=== PATIENT | female | born 1975 | race Caucasian/White ===

== ENCOUNTER 2017-06-28 12:47 | Emergency (ER) | payer OTHER ==
[~2017-06-28] VITALS: Ht 167.6 cm; Wt 63.6 kg
[2017-06-28 13:09] VITALS: BP 176/81; PULSE 114; RESP 18; O2SAT 100
--- NOTE | 2017-06-28 13:52 | ED.REPORT ---
HPI-General Illness Date of Service Jun 28, 2017 ED Provider: Sam Beltre DO Pt is a 42 year old female with a hx of chronic back pain, depression and anxiety presenting to the ED complaining of severe back pain. Associated symptoms include intermittent urinary incontinence, numbness in her arms and legs down to her feet, pain and shaking in her legs, and neck stiffness. Denies stool incontinence, dysuria, urinary frequency, urinary decrease, or hematuria. She is feeling very frustrated because she has seen several specialists for her back but no cause for her pain has been identified. She states that she is intermittently suicidal due to the pain. Pt states that she "can't live like this." She has had chronic back pain for the last 5 years. 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 Pt is ambulatory. Denies any previous hx of suicide attempt or plan. Nursing Notes Stated Complaint: MENTAL HEALTH Chief Complaint: Back Pain or Injury Nursing Notes Reviewed: Yes Allergies: Coded Allergies: No Known Allergies (Unverified , 06/28/17) General Time Seen by MD: 13:32 Chief Complaint Back pain Hx Obtained From: Patient Arrived By: Walk-in Sudden in Onset?: No Onset Occurred: Onset unknown Symptom Duration: Since onset Location: : Back Quality: Painful Severity: Current: Severe Severity: Maximum: Severe Recent Healthcare: No recent doctor visit, No recent hospitalization Similar Sx Previous: Yes Past Medical History Past Medical History Chronic back pain Depression Anxiety Past Surgical History denies Smoking History Current Every Day Smoker Social History Alcohol Use: Denies alcohol use Drug Use: Denies drug use Ambulatory Status Independent Review of Systems Denies stool incontinence Full Review of Systems Female: Reports: Incontinence, Denies: Dysuria, Hematuria, Urinary frequency, Urination decreased, Urination increased Musculoskeletal: Reports: Back pain, Neck pain Neurologic: Reports: Numbness, Shaking Complete sys rev & neg: except as marked. Physical Exam Vital Signs Vital Signs Date Time Temp Pulse Resp B/P Pulse Ox O2 Delivery O2 Flow Rate FiO2 06/28/17 13:09 36.8 114 18 176/81 100 Room Air Initial VS: Reviewed General/Constitutional: Well-developed, Well-nourished Head / Eyes: Atraumatic, Normocephalic, PERRL ENT: Mucous membranes moist, Conjunctiva normal, No scleral icterus Neck: Supple, Non-tender, Full range of motion Respiratory: Breath sounds normal, Clear to auscultation, No respiratory distress Cardiovascular: Regular rate & rhythm, Heart sounds normal, Intact distal pulses Abdomen / GI: Soft, Non-tender, No guarding, No rebound, No distention Extremities: Vascular intact, Neuro intact, No swelling, No tenderness Skin: Warm, Dry, No cyanosis Back: Atraumatic, No CVA tenderness Upper lumbar tenderness to palpation Neurologic: Oriented X3, Speech NL, No motor deficits Decreased sensation of the left lower extremity. Otherwise sensory function normal at all spinal levels. Motor function normal from L1-S1. Psychiatric: Cognitive function NL Abnormal Thinking / Perception: Positive: Suicidal, no plan Expresses suicidal ideation without plan due to pain Re-Eval/Medical Decision Med Decision/Clinical Course Other than a minor paresthesia of the left anterior brandt and lateral foot patient is neurologically intact. Pain sounds chronic in nature without bowel or bladder dysfunction. Patient does appear to be in severe distress, she does appear to be anxious and endorses depression and suicidal thoughts. Will plan to have mental health evaluation. Care transferred to Dr. Solo Time of Eval: 15:22 Patient Status: Condition improved Re-Evaluation/Progress Note: Pt care transferred to Dr. Solo. Counseled Regarding: Diagnosis, Lab results, Need for follow-up, When/why to return to ED Discharge & Departure Primary Impression: Depression Depression Type: unspecified Qualified Code: F32.9 - Major depressive disorder, single episode, unspecified Additional Impression: Chronic back pain Back pain location: low back pain Back pain laterality: unspecified Sciatica presence: unspecified whether sciatica present Qualified Code: M54.5 - Low back pain Disposition: Home Discharge Condition All VS Reviewed: Yes Condition: Improved Care Transferred to: Care transferred to Dr. Solo Care Transferred at: 15:23 Scribe Attestation Portions of this note were transcribed by Carter Zapata. I, Dr. Beltre personally performed the history, physical exam and medical decision-making; I reviewed and confirmed the accuracy of the information in the transcribed note. Signed by: Kimberley Arreaga, 06/28/2017. Sam Beltre DO Jun 28, 2017 13:52 CARTER ZAPATA Jun 28, 2017 13:59
[2017-06-28 15:54] VITALS: BP 118/80; PULSE 97; RESP 16; O2SAT 100
[2017-06-28] MEDS ORDERED: oxyCODONE-Acetamin 10-325 mg Tablet PO ONE (16:20)
[2017-06-28] MEDS ORDERED: PRE20 PO (16:33)
[2017-06-28] MEDS ORDERED: METH750T3 PO (16:33)
[2017-06-28] MEDS ORDERED: OXYC-466 PO (16:33)
[2017-06-28 16:41] VITALS: BP 125/75; PULSE 89; O2SAT 100
== END 2017-06-28 17:08 | disposition home or self-care (01) ==
LOC: SED 12:47
DX: F32.9 Major depressive disorder, single episode, unspecified (principal); M54.5 Low back pain; G89.29 Other chronic pain; F41.9 Anxiety disorder, unspecified; F17.200 Nicotine dependence, unspecified, uncomplicated
CPT/HCPCS: 82075; 96372; 99284; J1885; J2060

== ENCOUNTER 2017-07-10 11:28 | Emergency (ER) | payer OTHER ==
[~2017-07-10 11:28] MED LIST: METH750T3 PO; OXYC-466 PO; PRE20 PO
[2017-07-10 11:40] VITALS: BP 156/99; PULSE 110; RESP 14; O2SAT 99
--- NOTE | 2017-07-10 12:48 | ED.REPORT ---
HPI-Chest Pain 40 and Over Date of Service Jul 10, 2017 ED Provider: Liam Isabel MD This is a 42-year-old female with history of chronic back pain, depression, anxiety who presents to the emergency department for right sided chest pain. She describes the pain as a constant, sharp, 9/10 stabbing pain around her right breast that radiates to the right elbow, which started 2 days ago while folding laundry. Pain is worse with movement. It does not seem to be relieved by ibuprofen 800 mg every 2-4 hours, methocarbamol, Flexeril, Percocet 10 mg. She has not had pain like this prior. She denies any breast lumps, family history of heart disease or personal history of heart disease. She has smoked for the last 24 years. She denies any recent long travel. She notes recent dizziness, shortness of breath and chronic headaches. She denies nausea or vomiting, abdominal pain, diarrhea, constipation. She does mention having left leg swelling 1 week prior. Nursing Notes Stated Complaint: CHEST PAIN, RIGHT BREAST TO ARMPIT Chief Complaint: General Complaint Nursing Notes Reviewed: Yes ([employer], [employer] not reconciled) Allergies: Coded Allergies: No Known Allergies (Unverified , 07/10/17) Scheduled Prednisone (PredniSONE) 20 Mg Tablet 40 MG PO DAILY Prednisone (PredniSONE) 20 Mg Tablet 40 MG PO DAILY Scheduled PRN Methocarbamol (Methocarbamol) 750 Mg Tablet 1,500 MG PO QID PRN PRN For Spasm Methocarbamol (Methocarbamol) 750 Mg Tablet 750 MG PO QID PRN PRN For Spasm Naproxen (Naprosyn) 500 Mg Tablet 500 MG PO BID PRN PRN For Pain oxyCODONE (oxyCODONE) 5 Mg Tablet 5-10 MG PO Q6H PRN PRN For Pain oxyCODONE-Acetaminophen 10-325 mg (oxyCODONE-Acetaminophen 10-325 mg) 1 Each Tablet 1 TABLET PO Q6H PRN PRN For Pain General Time Seen by MD: 12:31 Chief Complaint Chest pain Sudden in Onset?: Yes Risk Factors PERC Rule Heart rate 100 or over, Unilateral leg swelling Past Medical History Past Medical History Notes: Last ED visit 06/2017 for back pack Past Medical History Chronic back pain Depression Anxiety Past Surgical History denies Smoking History Current Every Day Smoker Social History Alcohol Use: Denies alcohol use Drug Use: Denies drug use Ambulatory Status Independent Review of Systems Basic Review of Systems Eyes: Vision NL ENT: Hearing NL : No dysuria, No frequency Respiratory: Reports: Shortness of breath Cardiovascular: Reports: Chest pain GI: Denies: Abdominal pain, Constipation, Diarrhea, Nausea, Vomiting Musculoskeletal: Reports: Back pain (chronic) Neurologic: Reports: Dizziness, Headache Psychiatric: Reports: Anxiety, Depression Complete sys rev & neg: except as marked. Physical Exam Initial Vital Signs Vital Signs (First) Date Time Temp Pulse Resp B/P Pulse Ox O2 Delivery O2 Flow Rate FiO2 07/10/17 11:40 37.0 110 14 156/99 99 07/10/17 13:46 Room Air Initial VS: Reviewed, Vital signs abnormal (HR 110) General/Constitutional: Awake, Alert, Cooperative, Not toxic appearing Distress / Hydration: Positive: Distress moderate (tearful) Behavior: Positive: Anxious Respiratory / Chest: Breath sounds NL, Breath sounds = bilat Cardiovascular: Regular rhythm, Heart sounds NL Heart Rate / Rhythm: Positive: Tachycardia Abdomen: Atraumatic, Soft, Non-tender, No guarding, No rebound, BS normoactive Lower Extremity / Pelvis / MS: Non-tender, No edema Interpretation & Diagnostics Lab Results Interpretation Result Diagram: 07/10/17 1300 07/10/17 1300 Test 07/10/17 13:00 07/10/17 13:22 White Blood Count 8.4th/mm3 (3.8-10.1) Red Blood Count 4.17mil/mm3 (3.90-5.20) Hemoglobin 10.5g/dL (12.0-15.6) Hematocrit 33.4% (35.0-46.0) Mean Corpuscular Volume 80fL (81-100) Mean Corpuscular Hemoglobin 25.2pg (27.0-35.0) Mean Corpuscular Hemoglobin Concent 31.4% (32.0-37.0) Red Cell Distribution Width 15.0% (12.3-15.4) Platelet Count 368bil/L (150-400) Neutrophils (%) (Auto) 63% (40-74) Lymphocytes (%) (Auto) 27% (14-46) Monocytes (%) (Auto) 9% (4-12) Eosinophils (%) (Auto) 1% (0-5) Basophils (%) (Auto) 0% (0-3) D-Dimer < 0.5mg/L FEU (<0.50) Sodium Level 140mEq/L (134-144) Potassium Level 4.1mEq/L (3.5-5.2) Chloride Level 104mEq/L (97-108) Carbon Dioxide Level 21mmol/L (18-29) Blood Urea Nitrogen 12mg/dL (6-24) Creatinine 0.68mg/dL (0.57-1.00) Estimat Glomerular Filtration Rate 137mL/min (>59) Glucose Level 88mg/dL (60-99) Calcium Level 9.3mg/dL (8.5-10.1) Magnesium Level 2.2mg/dL (1.6-2.6) Total Bilirubin 0.2mg/dL (0.0-1.2) Aspartate Amino Transf (AST/SGOT) 15U/L (0-50) Alanine Aminotransferase (ALT/SGPT) 13U/L (0-32) Alkaline Phosphatase 43U/L (25-150) Troponin T < 0.010ug/L (0.0-0.011) Total Protein 6.9g/dL (6.4-8.4) Albumin 4.3g/dL (3.4-5.0) Human Chorionic Gonadotropin, Qual Negative (Negative) Hold Urine Received (Received) Lab Results Interpretation: CBC normal CMP normal D dimer negative Troponin negative after >24 hours of continuous symptoms X-Ray Chest Interpretation Chest Xray Interpretation: IMPRESSION: No radiographic evidence of acute cardiopulmonary pathology. Re-Eval/Medical Decision Med Decision/Clinical Course This is a 42-year-old female with history of depression, anxiety and chronic back pain who presents to the ED for right sided chest pain. Patient is PERC positive given history of unilateral leg swelling and tachycardia, so D-dimer was ordered. Her story is unlikely for ACS. However, troponins, EKG, chest x- ray was taken. Patient had negative troponins, negative d-dimer and unremarkable CMP. Chest x-ray showed no acute abnormalities. Patient's pain is reproducible with movement and physical exam showed tenderness of right sided ribs and musculature. This is likely due to chest wall pain and emergent cause of chest pain has been ruled out. Patient's pain improved with morphine and benzodiazepine. Source of Hx: Old records Differential Diagnosis: Positive: Chest pain, acute, Negative: Acute coronary syndrome, Acute myocardial infarct, Esophageal rupture, Gun shot wound chest, Pneumonia, Pneumothorax, Pulmonary edema, Pulmonary embolism, Rib fracture Discharge & Departure Primary Impression: Chest wall pain Disposition: Home Discharge Condition All VS Reviewed: Yes Condition: Stable Patient Instructions: Chest Wall Pain (ED) Additional Instructions: In the emergency department, you werre evaluated for your chest pain. A dangerous cause of the pain was not identified on your tests (blood, EKG, Xray. The pain is likely related to either a muscle strain or costochondritis. You can take naprosyn (alleve) 500mg twice a day (instead of ibuprofen, take with food) You can take the muscle relaxant methocarbamol 750mg up to 4 times a day as needed. I have written for a 5 day course of prednisone 40mg daily as you indicate that hs helped proviously. I have written a refill of the oxycodone to help you get to your doctor's appointment next week. USE SPARINGLY. This is a narcotic and causes drowsiness. NO driving for at least 4 hours after taking. I do recommend calling to see if they can indeed accept you as a primary care provider. Try to use ice and heat packs. Try to rest your arm. Referrals: Chanda Kulkarni DO (PCP) Attending Statement This is a 42-year-old female initially seen by the resident, but I personally interviewed and examined the patient. She presents with extremely atypical, low risk right-sided chest discomfort 2 days continuously. She is also chronic severe back pain, and is out of her methocarbamol-is trying to establish for a PCP down in [place] although she lives on [facility] for continued management. She has no high risk features. She is extremely anxious, but otherwise has a normal physical exam. Her workup in the department was negative including troponin-after to discontinue his symptoms, the normal EKG, and a low risk story additional biomarkers and testing is not indicated. HEART score is 1. She has no clinical findings of DVT/PE, and a d-dimer is negative. Chest x-ray is negative for pneumothorax, pneumonia other overt pathology. She is quite anxious, is also notes that she does not have a PCP that no one seems understand her chronic pain. Turns out she is out of her muscle relaxant , and is out of her oxycodone, and is in the process of following up but does not have an appointment until next . Overall, I find the patient very low risk for acute coronary syndrome or other dangerous pathology. Her workup is reassuring, her exam is reassuring. After long discussion the patient gone ahead and written a refill for methocarbamol, as well as a few oxycodone to get her to the appointment-although explained to provide further refills, and I recommend she continue the naproxen she thinks works better for her than ibuprofen. She also request a few days of prednisone and states that really helps with her back, several for short five-day course at her request. I recommended addition of Tylenol and written for oxycodone without Tylenol to avoid overdose. The patient is discharged in stable condition. Liam Isabel MD Jul 10, 2017 12:48 Mc Cintron DO Jul 10, 2017 13:39
[2017-07-10 13:19] LABS: Mean Corpuscular Hemoglobin 25.2 pg (27.0-35.0); Mean Corpuscular Volume 80 fL (81-100); Platelet Count 368 bil/L (150-400)
[2017-07-10 13:20] LABS: BASOPHILS % (AUTO) 0 % (0-3); EOSINOPHILS % (AUTO) 1 % (0-5); MONOCYTES % (AUTO) 9 % (4-12); NEUTROPHILS % (AUTO) 63 % (40-74)
[2017-07-10 13:46] VITALS: BP 130/70; PULSE 89; RESP 14; O2SAT 100
--- NOTE | 2017-07-10 13:51 | DRSVH ---
PROCEDURE: X-RAY CHEST ONE VIEW, PORTABLE ([id number]) INDICATIONS: CP TECHNIQUE: One view of the chest was acquired. COMPARISON: None. FINDINGS: Surgical changes and devices: None. Lungs and pleura: No pleural effusions or pneumothorax. Lungs are clear. Mediastinum: Mediastinal contours appear normal. Heart size is normal. Bones and chest wall: No suspicious bony lesions. Overlying soft tissues appear unremarkable. IMPRESSION: No radiographic evidence of acute cardiopulmonary pathology. Dictated by: George Talbot M.D. on 07/10/2017 at 13:49 Approved by: George Talbot M.D. on 07/10/2017 at 13:49
[2017-07-10 13:59] LABS: TROPONIN T < 0.010 ug/L (0.0-0.011)
[2017-07-10 14:09] LABS: Magnesium 2.2 mg/dL (1.6-2.6)
[2017-07-10] MEDS ORDERED: METH750T3 PO (15:10)
[2017-07-10] MEDS ORDERED: NAPR500T PO (15:10)
[2017-07-10] MEDS ORDERED: OXYC5TAB72 PO (15:10)
[2017-07-10] MEDS ORDERED: PRE20 PO (15:10)
[2017-07-10 15:34] VITALS: BP 140/69; PULSE 92; RESP 18; O2SAT 100
== END 2017-07-10 15:35 | disposition home or self-care (01) ==
LOC: SED 11:28
DX: R07.89 Other chest pain (principal); F17.200 Nicotine dependence, unspecified, uncomplicated
CPT/HCPCS: 36415; 71010; 80053; 83735; 84484; 84703; 85025; 85378; 93005; 96374; 96375; 99285; J2060; J2270

== ENCOUNTER 2017-07-19 16:41 | Observation (INO) | payer OTHER ==
[~2017-07-19] VITALS: Ht 167.6 cm; Wt 75.3 kg
[~2017-07-19 16:41] MED LIST changes: +NAPR500T PO; +OXYC-530 PO
[2017-07-19 16:49] VITALS: BP 138/87; PULSE 104; RESP 16; O2SAT 100
[2017-07-19] MEDS ORDERED: 0.9% Sodium Chloride 1,000 ML IV ONE (16:59)
[2017-07-19] MEDS ORDERED: Ondansetron 2 mg/mL 2 mL Inj IVPUSH ONE (17:00)
[2017-07-19 17:14] LABS: BASOPHILS % (AUTO) 0.8 % (0-3); EOSINOPHILS % (AUTO) 2.2 % (0-5); MONOCYTES % (AUTO) 7.3 % (4-12); Mean Corpuscular Hemoglobin 25.3 pg (27.0-35.0); Mean Corpuscular Volume 78.9 fL (81-100); NEUTROPHILS % (AUTO) 56.3 % (40-74); Platelet Count 467 bil/L (150-400)
--- NOTE | 2017-07-19 17:21 | ED.REPORT ---
HPI-General Illness Date of Service Jul 19, 2017 ED Provider: Rodrigo Azevedo MD Pt is a 42 y/o female w/ a hx of GERD, chronic back pain, presenting to the ED c /o waxing and waning severe epigastric abdominal pain with radiation to the right upper chest onset 11 days ago. She c/o associated nausea, vomiting x2 episodes. Pt denies hematemesis, diarrhea, bloody stool. Her pain is not exacerbated or relieved by anything. There is no history of peptic ulcer disease. She was seen for similar complaints on 07/12/17 at [facility] and was discharged with plan for PCP follow-up. She saw her PCP Dr. Turk today who recommended she come to the ED to evaluate for possible choledocholithiasis. Abdominal surgeries are and tubal ligation. She has been taking [id number] mg Ibuprofen daily for chronic back pain for 3 years. She also takes Omeprazole. There is no history of similar symptoms. Obtained previous RUQ US performed at [facility] on 07/12/17 - 1. No cholelithiasis or evidence of acute cholecystitis. 2. Mildly enlarged common bile duct is of uncertain etiology. The need an MRCP to evaluate for possible choledocholithiasis may be determined clinically. Nursing Notes Stated Complaint: POSSIBLE GALBADDER STONE/SENT BY DOCTOR Chief Complaint: Female Abdominal Pain Nursing Notes Reviewed: Yes Allergies: Coded Allergies: No Known Allergies (Unverified , 07/10/17) Scheduled Amitriptyline (Amitriptyline) 25 Mg Tab 25-50 MG PO QAM Duloxetine (Duloxetine) 30 Mg Capsule.dr 90 MG PO HS Fluticasone Propionate (Fluticasone Propionate) 50 Mcg/Actuation [place].susp 1 SPRAY NS QAM Ibuprofen (Ibuprofen) 800 Mg Tablet 800 MG PO TID Omeprazole (Omeprazole) 40 Mg Capsule.dr 40 MG PO BIDAC Zinc Oxide (Vitamelts Fast Dissolve) 15 Mg Tab.rapdis 15 MG PO QAM Scheduled PRN Hydrocodone-Acetaminophen 5-325 mg (Hydrocodone-Acetaminophen 5-325 mg) 1 Each Tablet 2 TABLET PO Q6H PRN PRN For Pain Methocarbamol (Methocarbamol) 750 Mg Tablet 750 MG PO QID PRN PRN For Spasm Pseudoephedrine HCl (Sinus 12 Hour) 120 Mg Tablet.er 120 MG PO BID PRN PRN For Congestion Sumatriptan Succinate (Sumatriptan Succinate) 50 Mg Tablet 50 MG PO DIRECTED PRN PRN For Headache MAY REPEAT IN 2 HRS IF NEEDED General Time Seen by MD: 16:57 Chief Complaint Abdominal pain Hx Obtained From: Patient Arrived By: Walk-in Sudden in Onset?: No Onset Occurred: More than a week ago... Symptom Duration: Intermittent Location: : Abdomen Quality: Painful Severity: Current: Moderate Severity: Maximum: Severe Similar Sx Previous: No Past Medical History Past Medical History Notes: Last ED visit 06/2017 for back pack Past Medical History Chronic back pain Depression Anxiety GERD Past Surgical History denies Smoking History Current Every Day Smoker Social History Alcohol Use: Denies alcohol use Drug Use: Denies drug use Ambulatory Status Independent Review of Systems Full Review of Systems Constitutional: Denies: Fever GI: Reports: Abdominal pain, Nausea, Vomiting, Denies: Bloody/tarry stool, Diarrhea, Hematemesis Complete sys rev & neg: except as marked. Physical Exam Vital Signs Vital Signs Date Time Temp Pulse Resp B/P Pulse Ox O2 Delivery O2 Flow Rate FiO2 07/19/17 16:49 37.2 104 16 138/87 100 Room Air Initial VS: Reviewed, Vital signs abnormal Head / Eyes: Atraumatic, Normocephalic ENT: Mucous membranes moist, Conjunctiva normal Neck: Full range of motion Respiratory: Breath sounds normal, Clear to auscultation, No respiratory distress Cardiovascular: Regular rate & rhythm, Heart sounds normal, Intact distal pulses Extremities: Vascular intact, Neuro intact, No swelling Skin: Warm, Dry, No cyanosis Neurologic: Alert, Oriented, Nonfocal Psychiatric: Behavior normal, Normal thought content General/Constitutional: Awake, Alert, No acute distress, Cooperative, Not toxic appearing Behavior: Positive: Tearful Appearance / Presentation: Positive: In pain, Uncomfortable Abdomen: Atraumatic, Soft, No guarding, No rebound, BS normoactive, No distention, No palpable mass Tenderness/Guarding/Rebound: Positive: Tender epigastric, Negative: Carney's sign positive Interpretation & Diagnostics Interpretation & Diagnostics: US abdomen: FINDINGS: No cholelithiasis. Normal gallbladder wall thickness. No pericholecystic fluid. Negative sonographic Carney's sign. No intra-or extrahepatic biliary ductal dilatation. IMPRESSION: No sonographic evidence of acute cholecystitis. Dictated by: George Talbot M.D. on 07/19/2017 at 18:13 Approved by: George Talbot M.D. on 07/19/2017 at 18:14 Lab Results Interpretation Result Diagram: 07/19/17 1711 07/19/17 1711 Test 07/19/17 17:11 07/19/17 17:13 White Blood Count 9.0th/mm3 (3.8-10.1) Red Blood Count 4.27mil/mm3 (3.90-5.20) Hemoglobin 10.8g/dL (12.0-15.6) Hematocrit 33.7% (35.0-46.0) Mean Corpuscular Volume 78.9fL (81-100) Mean Corpuscular Hemoglobin 25.3pg (27.0-35.0) Mean Corpuscular Hemoglobin Concent 32.0% (32.0-37.0) Red Cell Distribution Width 15.7% (12.3-15.4) Platelet Count 467bil/L (150-400) Neutrophils (%) (Auto) 56.3% (40-74) Lymphocytes (%) (Auto) 33.3% (14-46) Monocytes (%) (Auto) 7.3% (4-12) Eosinophils (%) (Auto) 2.2% (0-5) Basophils (%) (Auto) 0.8% (0-3) Sodium Level 138mEq/L (134-144) Potassium Level 3.6mEq/L (3.5-5.2) Chloride Level 100mEq/L (97-108) Carbon Dioxide Level 23mmol/L (18-29) Blood Urea Nitrogen 9mg/dL (6-24) Creatinine 0.63mg/dL (0.57-1.00) Estimat Glomerular Filtration Rate 150mL/min (>59) Glucose Level 90mg/dL (60-99) Calcium Level 9.0mg/dL (8.5-10.1) Magnesium Level 1.9mg/dL (1.6-2.6) Total Bilirubin 0.2mg/dL (0.0-1.2) Aspartate Amino Transf (AST/SGOT) 13U/L (0-50) Alanine Aminotransferase (ALT/SGPT) 10U/L (0-32) Alkaline Phosphatase 46U/L (25-150) Total Protein 6.8g/dL (6.4-8.4) Albumin 4.2g/dL (3.4-5.0) Lipase 17U/L (13-60) Human Chorionic Gonadotropin, Qual Negative (Negative) Hold Soliz Top Tube Received (Received) Urine Color Straw (YELLOW) Urine Appearance Clear (CLEAR,HAZY) Urine pH 5.5 (5.0-8.0) Urine Specific [place] 1.015 (1.003-1.035) Urine Protein Negativemg/dL (NEG,TRACE) Urine Glucose (UA) Negativemg/dL (NEGATIVE) Urine Ketones Negativemg/dL (NEGATIVE) Urine Occult Blood Negative (NEGATIVE) Urine Nitrite Negative (NEGATIVE) Urine Bilirubin Negative (NEGATIVE) Urine Urobilinogen Normalmg/dL (NORMAL) Urine Leukocyte Esterase Negative (NEGATIVE) Urine RBC 0-2/hpf (0-2) Urine WBC 0-5/hpf (0-5) Urine Epithelial Cells Moderate/hpf (NONE-MOD) Urine Crystals None seen (NONE SEEN) Urine Bacteria Few/hpf (NONE-FEW) Urine Hyaline Casts None/lpf (NONE) Urine Granular Casts None seen (NONE SEEN) Urine Waxy Casts None seen (NONE SEEN) Urine Red Blood Cell Casts None seen (NONE SEEN) Urine White Blood Cell Casts None seen (NONE SEEN) Urine Mucus None seen (None Seen) Urine Trichomonas None seen (NONE SEEN) Urine Yeast None (NONE SEEN) Urinalysis Comment None Urine Culture Reflexed Not indicated X-Ray Abdominal Interpretation IMPRESSION: Nonobstructive bowel gas pattern. Moderate stool in the ascending colon. Dictated by: George Talbot M.D. on 07/19/2017 at 19:05 Approved by: George Talbot M.D. on 07/19/2017 at 19:06 Study: 4 view Interpretation / Wet Read by: Interpret - Radiologist Re-Eval/Medical Decision Med Decision/Clinical Course In summary, the patient is a generally healthy 42-year-old female who presents with severe epigastric abdominal pain. She admits to taking 800 mg of ibuprofen 4 times daily for the last 2 years. Here in the emergency department she has tenderness about the epigastrium those otherwise afebrile and hemodynamically stable. She appears quite uncomfortable. Meds given: IVF, Zofran, Dilaudid, pantoprazole, GI cocktail, Carafate. Thereafter patient reported dramatic symptomatic improvement. Obtained previous RUQ US performed at [facility] on 07/12/17 - 1. No cholelithiasis or evidence of acute cholecystitis. 2. Mildly enlarged common bile duct is of uncertain etiology. The need an MRCP to evaluate for possible choledocholithiasis may be determined clinically. Labs notable as below: CBC: HCT of 33.7, no leukocytosis. CMP: Unremarkable Lipase WNL LFTs WNL UA: no signs of UTI : negative US abdomen: No sonographic evidence of acute cholecystitis. XR abdomen: Nonobstructive bowel gas pattern. Moderate stool in the ascending colon. Initial history of dilated common bile duct was somewhat concerning for biliary etiology to her overall history, presentation and examination is not suggestive thereof. Repeat ultrasound today demonstrates no particularly concerning biliary findings. Examinations which were consistent with peptic ulcer disease/ gastritis, likely in the setting of her very excessive ibuprofen use. After seeing any blood medications the patient reported symptomatic improvement was not comfortable with outpatient management. She stated that she was very scared of going home due to the pain and she has been experiencing. Patient was discussed with GI doctor Montanez agreed to perform upper endoscopy in the morning. In the meantime patient will be given 40 mg of pantoprazole twice a day and Carafate 4 times a day. Patient is to be made nothing by mouth with plan for endoscopy in the morning. At this time no evidence of perforated ulcer /peritonitis or other acute surgical process. Patient was discussed with admitting hospitalist and transferred for further management in stable condition. Time of Eval: 18:22 Re-Evaluation/Progress Note: Pt rechecked. She is uncomfortable. She would like to be admitted mostly for pain control but also for further evaluation. Consultation #1: Referral / Consult Name: Harish Montanez MD Call Returned at: 18:33 Pelletizer Operator: Agrees with eval, Agrees with plan Note: Discussed case with GI. Requests make patient NPO. Will scope tomorrow morning. Consultation #2: Referral / Consult Name: Charo Mendiola DO Consulted With: Hospitalist Call Returned at: 19:21 Pelletizer Operator: Will see patient, Agrees with eval, Agrees with plan, Accepts admit Counseled Regarding: Diagnosis, Lab results, Need for admission Discharge & Departure Primary Impression: Epigastric pain Additional Impressions: NSAID long-term use Peptic ulcer disease Disposition: ADMITTED TO HOSPITAL Discharge Condition All VS Reviewed: Yes Condition: Stable Referrals: Chanda Kulkarni DO (PCP) Scribe Attestation Portions of this note were transcribed by Axel Degroot. I, Dr. Azevedo personally performed the history, physical exam and medical decision-making; I reviewed and confirmed the accuracy of the information in the transcribed note. copies to: Chanda Kulkarni Beck O MD Jul 19, 2017 17:21 AXEL DEGROOT Jul 19, 2017 17:44
[2017-07-19] MEDS: HYDROmorphone 0.5 mg/0.5 mL iSecure Syringe IVPUSH PRN ×2 (17:29→17:50)
[2017-07-19 17:36] LABS: APPEARANCE,URINE CLEAR (CLEAR,HAZY); COLOR,URINE STRAW (YELLOW); OCCULT BLOOD,URINE NEGATIVE (NEGATIVE); PH,URINE 5.5 (5.0-8.0); UROBILINOGEN,URINE NORMAL (NORMAL)
[2017-07-19 17:47] LABS: Lipase 17 U/L (13-60); Magnesium 1.9 mg/dL (1.6-2.6)
--- NOTE | 2017-07-19 18:15 | DRSVH ---
PROCEDURE: US ABDOMEN, LIMITED ([id number]) INDICATIONS: ruq pain TECHNIQUE: Real-time focused scanning was performed of the abdomen, with image documentation. COMPARISON: Located Within [facility], US, ABDOMEN COMPLETE, 07/12/2017, 10:52. FINDINGS: No cholelithiasis. Normal gallbladder wall thickness. No pericholecystic fluid. Negative so nographic Carney's sign. No intra-or extrahepatic biliary ductal dilatation. IMPRESSION: No sonographic evidence of acute cholecystitis. Dictated by: George Talbot M.D. on 07/19/2017 at 18:13 Approved by: George Talbot M.D. on 07/19/2017 at 18:14
[2017-07-19] MEDS ORDERED: Ondansetron 2 mg/mL 2 mL Inj IVPUSH PRN (18:25)
[2017-07-19] MEDS ORDERED: LidocaineVisc 2%:Antacid 1:1 10 mL Syringe PO ONE (18:25)
[2017-07-19] MEDS ORDERED: HYDROmorphone 1 mg/mL Inj IVPUSH ONE (18:25)
[2017-07-19] MEDS ORDERED: Alum-Mag Hydrox-Simeth 30 mL Suspension PO PRN (18:25)
[2017-07-19] MEDS ORDERED: Pantoprazole 4 mg/mL 10 mL Inj IVPUSH ONE ×2 (18:25→20:30)
[2017-07-19 19:04] VITALS: BP 132/81; PULSE 84; RESP 16; O2SAT 99
[2017-07-19] MEDS ORDERED: LORazepam 1 mg Tablet PO ONE (19:05)
--- NOTE | 2017-07-19 19:08 | DRSVH ---
PROCEDURE: X-RAY ACUTE ABDOMINAL SERIES ([id number]) INDICATIONS: abd pain epigastric TECHNIQUE: One view chest and two views of the abdomen were acquired. COMPARISON: None. FINDINGS: Surgical changes and devices: None. Chest: Lungs are clear. Heart size is normal. No pleural effusions. No pneumoperitoneum. Abdomen: Bowel gas pattern is normal. Moderate stool in the ascending colon. No suspicious calcific ations. Visualized solid organ contours appear normal. Bones: No suspicious bony lesions. IMPRESSION: Nonobstructive bowel gas pattern. Moderate stool in the ascending colon. Dictated by: George Talbot M.D. on 07/19/2017 at 19:05 Approved by: George Talbot M.D. on 07/19/2017 at 19:06
[2017-07-19 19:28] VITALS: BP 132/81; PULSE 84; RESP 16; O2SAT 99
[2017-07-19 19:58] VITALS: BP 134/88; PULSE 85; RESP 18; O2SAT 100
[2017-07-19] MEDS ORDERED: HYDROmorphone 1 mg/mL Inj IVPUSH PRN (20:00)
[2017-07-19] MEDS ORDERED: Sucralfate 100 mg/mL 10 mL Suspension PO ONE (21:30)
[2017-07-19] MEDS: 0.9% Sodium Chloride 1,000 ML IV SCH (21:41)
--- NOTE | 2017-07-19 22:29 | PCM.HPMED ---
Subjective Date of Service Jul 19, 2017 Primary Provider: Admitting Physician: Charo Mendiola DO Primary Care Physician: Chanda Kulkarni DO Attending Physician: Charo Mendiola DO Admit Status: From the Emergency Department Chief Complaint: Epigastric pain History of Present Illness: Ms. Bruce is a 42-year-old female with past medical history of chronic back pain & GERD presents to the emergency department secondary to 11days of epigastric/abdominal pain with radiation to the right upper chest. She does not remember a specific inciting event to these current symptoms, though was seen at [facility] ED on 07/10/2017 and her chest pain was determined to be a muscle strain or costochondritis. She was given NSAID, muscle relaxant and prednisone as well as pain medications. She was then seen at [facility] for similar symptoms and reports no diagnostic solution was found to her current pain, right upper quadrant ultrasound performed at [facility] on 07/12/2017 showed no cholelithiasis or evidence of acute cholecystitis. 2. Mildly enlarged common bile duct is of uncertain etiology. The need an MRCP to evaluate for possible choledocholithiasis may be determined clinically. She presents again today to the ED for ongoing epigastric pain with newly accompanying nausea and vomiting. The vomiting began yesterday 6 times and is reported as watery, no blood. She has not been able to eat food without pain and "does not remember the last time she ate anything secondary to this pain". She reports no fevers at home, no other sick contacts, no abdominal pain or diarrhea. Her epigastric pain is not worsened by anything specific, is relieved with pain medications. She does state that she has been taking 800 mg of ibuprofen every 4 hours to help relieve her pain in addition to her pain medications. She was seen by her PCP Dr. Turk today who recommended further evaluation in the ED for choledocholithiasis. She has significant past surgical history of and tubal ligation, The ED patient was given pain medication, GI was consult is requested patient be placed nothing by mouth, Protonix and sulfate given admission for monitoring of hemodynamic state with scheduled upper endoscopy for suspected bleeding peptic ulcer tomorrow. CBC showed a hemoglobin 10.8, CMP unremarkable. Lipase , total bili and LFTs within normal limits. UA negative. Review of Systems: A comprehensive review of systems was conducted with the patient and found to be negative except as above in the history of present illness. Allergies Coded Allergies: No Known Allergies (Unverified , 07/10/17) Home Medications Methocarbamol (Methocarbamol) 750 Mg Tablet 1,500 MG PO QID PRN PRN For Spasm Methocarbamol (Methocarbamol) 750 Mg Tablet 750 MG PO QID PRN PRN For Spasm Naproxen (Naprosyn) 500 Mg Tablet 500 MG PO BID PRN PRN For Pain oxyCODONE (oxyCODONE) 5 Mg Tablet 5-10 MG PO Q6H PRN PRN For Pain oxyCODONE-Acetaminophen 10-325 mg (oxyCODONE-Acetaminophen 10-325 mg) 1 Each Tablet 1 TABLET PO Q6H PRN PRN For Pain PMH Chronic back pain Depression Anxiety GERD Surgical History Tubal ligation Family History Mother age 76 from myocardial infarction Father had "lung issues" stent placement 4. Alive today 80 years old Social History Hx Alcohol Use: No Hx Substance Use: No Hx Tobacco Use: Yes Smoking Status: Current Every Day Smoker Living Arrangement: with Family Exam Vital Signs Vital Sign - Last Date Time Temp Pulse Resp B/P Pulse Ox O2 Delivery O2 Flow Rate FiO2 07/19/17 19:58 36.8 85 18 134/88 100 Room Air Exam General: Awake and alert and going up in hospital bed in mild distress, well- developed, well-nourished, appropriately interactive HEENT: Normocephalic, atraumatic. External ears without defect. Pupils equal, round, and reactive to light and accommodation. Anicteric sclerae, moist conjunctivae, and no lid lag. Oropharynx free of erythema and cobble stoning with moist mucosa. Neck: Supple with full range of motion. No jugular venous distension. No bruits. Cardiovascular: Regular rate and rhythm with no murmurs, rubs, or gallops appreciated Pulmonary: Clear to auscultation bilaterally with no crackles, wheezes, or rhonchi. Normal respiratory effort with no use of accessory muscles. Abdomen: Bowel tones present. Soft, very tender to palpation epigastric area. Nondistended. No tenderness to remaining quadrants of abdomen. No hepatosplenomegaly or masses appreciated. Extremities: No clubbing, cyanosis, edema Skin: Normal temperature, turgor, and texture Neurological: Cranial nerves grossly intact. Psychiatric: Normal mood and affect. Alert and oriented to person, place, and time. Lab and Diagnostics Result Diagram: 07/19/17 1711 07/19/17 1711 X-Rays, CTs and MRIs . US ABDOMEN, LIMITED IMPRESSION: No sonographic evidence of acute cholecystitis. Dictated by: George Talbot M.D. on 07/19/2017 X-RAY ACUTE ABDOMINAL SERIES IMPRESSION: Nonobstructive bowel gas pattern. Moderate stool in the ascending colon. Dictated by: George Talbot M.D. on 07/19/2017 Assessment & Plan Ms. Bruce is a 42-year-old female with past medical history of chronic back pain & GERD presents to the emergency department secondary to 11days of epigastric/abdominal pain with radiation to the right upper chest, admitted for GI workup secondary to suspected peptic ulcer. Epigastric pain, present on admission. Ongoing Most likely secondary to long-term NSAID use. Minimal concern for [place]. Pancreatic & liver enzymes negative Troponin pending ECG ordered and pending GI consult from EGD Nothing by mouth Protonix twice a day Sucralfate IV fluids Trend H&H, nurse guaiac stool Upper endoscopy scheduled for 07/20/2017 Pain medications changed to IV morphine 1-2 mg every 4 when necessary Continue to monitor Chronic conditions Anxiety. Present on admission. Ongoing Ativan 0.5 mg by mouth every 4 Chronic back pain. Ongoing Pain medication as above Depression. Ongoing Restart home meds GERD. Ongoing PPI twice a day Patient status: Patient admitted under observational status with EGD for the morning GI Prophylaxis: Proton Pump Inhibitor VTE Prophylaxis: SCDs Resuscitation Status: CPR: Attempt Resuscitation Attending Statement The patient was seen and examined together with house staff on 07/19/2017 and I agree with the history, exam and plan as outlined in the note above. SANDRA GARCIA DO Jul 19, 2017 22:29 Charo Mendiola DO Jul 20, 2017 04:13
[2017-07-19] MEDS ORDERED: DULO30CA50 PO (22:34)
[2017-07-19] MEDS ORDERED: SUMA50TA2 PO (22:40)
[2017-07-19] MEDS ORDERED: HYDR-4003 PO (22:40)
[2017-07-19] MEDS ORDERED: IBUP800T28 PO (22:41)
[2017-07-19] MEDS ORDERED: AMT25T PO (22:42)
[2017-07-19] MEDS ORDERED: FLUT15.88 NS (22:42)
[2017-07-19] MEDS ORDERED: OMEP40CA36 PO (22:42)
[2017-07-19] MEDS ORDERED: [UNRECOGNIZED DRUG - CODE] PO (22:43)
[2017-07-19] MEDS ORDERED: ZINC15TA4 PO (22:43)
[2017-07-19] MEDS: LORazepam 0.5 mg Tablet PO PRN (23:04)
[2017-07-19] MEDS: DULoxetine 30 mg DR Capsule PO SCH (23:16)
[2017-07-20] VITALS (12 sets, daily range): BP systolic 104–138; BP diastolic 56–96; PULSE 69–99; RESP 12–20; O2SAT 96–100
--- NOTE | 2017-07-20 01:31 | NUR ---
New Admit 42 y.o. female patient being admitted for GI workup. Hx Epigastric pain x 2wks and possible NSAID overuse. NPO, RA No telemetry and N/S running at 100 Ml/Hr. VSS on arrival but in a lot of pain. On-Call doctor was paged and dilaudid was ordered and given. Pt. had some relieve but it only lasted an hour so the admitting resident was paged and he order M/S for Px and Ativan (anxiety/sleep) per Pt. request. This combination helped and Pt. went to sleep. WCTM
[2017-07-20 07:12] LABS: EOSINOPHILS % (AUTO) 2.8 % (0-5); MONOCYTES % (AUTO) 9.2 % (4-12); Mean Corpuscular Hemoglobin 25.5 pg (27.0-35.0); Mean Corpuscular Volume 80.8 fL (81-100); NEUTROPHILS % (AUTO) 58.4 % (40-74); Platelet Count 386 bil/L (150-400)
[2017-07-20] MEDS: LORazepam 0.5 mg Tablet PO PRN (07:22)
[2017-07-20] MEDS: Pantoprazole 40 mg ER24 Tablet PO SCH ×2 (07:22→17:15)
[2017-07-20] MEDS: Sucralfate 1,000 mg Tablet PO SCH ×3 (07:22→17:16)
[2017-07-20] MEDS: 0.9% Sodium Chloride 1,000 ML IV SCH ×3 (07:49→19:35)
[2017-07-20 08:12] LABS: TROPONIN T 0.01 ug/L (0.0-0.011)
[2017-07-20] MEDS ORDERED: fentaNYL-PF 50 mCg/mL 2 mL Inj IVPUSH PRN (08:15)
[2017-07-20] MEDS: HYDROmorphone 1 mg/mL Inj IVPUSH PRN ×3 (13:05→18:48)
--- NOTE | 2017-07-20 13:43 | ENDO ---
[address] [id number] ENDOSCOPY PROCEDURE PATIENT: ANNA WHITE : 1975 MR#: [id number] ADMIT: 07/19/2017 JOB ID: [id number] DATE: 07/20/2017 TYPE OF OPERATION: Esophagogastroduodenoscopy with biopsy. PREOPERATIVE DIAGNOSIS(ES): Epigastric pain. POSTOPERATIVE DIAGNOSIS(ES): 1. Mild food seen in the stomach. 2. Mild nonerosive gastritis. 3. Pale antral mucosa status post biopsy. ANESTHESIA: 1. Fentanyl 200 mcg. 2. Versed 10 mg IV administered. COMPLICATION: None. BLOOD LOSS: Minimal. DESCRIPTION OF PROCEDURE: After risks and benefits were explained to the patient, informed consent was obtained. After anesthesia administered, upper endoscope was then inserted into the mouth, intubating the esophagus, stomach, first and second portion of duodenum. Mucosa carefully examined. After procedure was done, the scope withdrawn and procedure terminated. FINDINGS: Upon inspection of the esophagus, the esophagus was normal without masses, ulcers or lesions. Z-line located 40 cm from incisors. Upon the entering the stomach, there was pale mucosa that was seen in the antrum. There were no masses or ulcers that were seen. There is also mild food seen in the stomach. Retroflexion was normal. Duodenal bulb, first and second portion normal. Biopsies were taken from the antrum and body and distal esophagus. IMPRESSION: 1. Pale mucosa in the antrum. 2. Mild food in the stomach. 3. Nonerosive gastritis. RECOMMENDATION: 1. Await pathology results. 2. Okay to start clear liquid diet. Advance as tolerated. 3. Protonix 40 mg by mouth twice a day. 4. Consider gastric emptying study.
--- NOTE | 2017-07-20 14:30 | NUR ---
Social Work: Initial Assessment Data: See initial assessment. Patient is a 42 year old female who was admitted on 07/19/2017 for epigastric pain per H&P. Patient's insurance is [employer] and her PCP is Dr. Chanda Kulkarni. EMR reviewed. SW met with patient to discuss discharge planning. Patient states that she lives at home with her spouse in [facility]. Patient considers her spouse to be her main support person. Patient confirms that she is I at baseline with ADLs and care needs. Patient states that she drives via POV. Patient denies having a hx of home health services or SNF. Patient denies having terminologist care insurance or VA benefits. Patient states that upon discharge her spouse Milad will assist with transporting her home. SW provided patient with a discharge planning checklist and encouraged to call with any questions/concerns. Phone number provided. Patient was discussed in morning rounds. No needs are anticipated at this time. SW will continue to follow. Assessment: Patient will discharge home with spouse. Plan: Patient will discharge home with spouse when medically stable. Transportation will be provided by spouse. No needs are anticipated at this time. SW will continue to follow. KEELEY Lane Addendum: 07/20/17 at 1438 by NADINE GRIFFIN Amended: Links added.
--- NOTE | 2017-07-20 16:26 | NUR ---
ENDO/pain/anxiety/diet pt went via w/ch to endo at 1110, returned at 1235. pain mid-epigastric region. Requested at 1000 to have pain medication changed to diliadud, done also d/t NPO request made for ativan to change to IV. Upon patient return A&O, able to transfer from stretcher to bed indep. Pain 04/23, c/o anxiety IV ativan given per request. Tolerating CL diet without n/v Addendum: 07/21/17 at 1116 by PAN LYNN RN late entry for 07/20/17 1000 pt requested to have morphine changed to dilaudid, morphine not effective.
--- NOTE | 2017-07-20 17:24 | PCM.PNMED ---
Subjective Date of Service Jul 20, 2017 Subjective Continued abdominal pain Exam Vital Signs Vital Sign - Last Date Time Temp Pulse Resp B/P Pulse Ox O2 Delivery O2 Flow Rate FiO2 07/20/17 12:35 36.8 77 18 126/68 100 Room Air Intake and Output 07/19/17 07/19/17 07/20/17 Cumulative From/Thru 15:00 23:00 07:00 07/19/17 16:49 - 07/20/17 06:08 Intake Total 1000 ml 1000 ml 2000 ml Balance 1000 ml 1000 ml 2000 ml IV Total 1000 ml 1000 ml 2000 ml # Voids 3 2 5 General: Alert, Cooperative, No Acute Distress Head: Normal Eyes: Scleral Anicteric Nose: Mucous Membr Moist/[place] Mouth: Mucous Membr Moist/[place] Neck: Supple Chest & Lungs: Chest Wall Normal, Clear to auscultation & percussion Cardiovascular: Regular Rate/Rhythm Pulses: NL carotid, radial, femoral, DP, PT Abdomen: Tender, Non-distended, Normoactive bowel tones, Soft Extremities: No cyanosis/clubbing/edma bilat Neurological: Grossly Neurologically Intact, Normal Speech IVs and Medications Medications Reviewed: Medications were reviewed in detail Lab and Diagnostics Result Diagram: 07/20/17 0650 07/20/17 0650 X-Rays, CTs and MRIs US ABDOMEN, LIMITED IMPRESSION: No sonographic evidence of acute cholecystitis. Dictated by: George Talbot M.D. on 07/19/2017 X-RAY ACUTE ABDOMINAL SERIES IMPRESSION: Nonobstructive bowel gas pattern. Moderate stool in the ascending colon. Dictated by: George Talbot M.D. on 07/19/2017 Additional Diagnostics DATE: 07/20/2017 TYPE OF OPERATION: Esophagogastroduodenoscopy with biopsy. POSTOPERATIVE DIAGNOSIS(ES): 1. Mild food seen in the stomach. 2. Mild nonerosive gastritis. 3. Pale antral mucosa status post biopsy. IMPRESSION: 1. Pale mucosa in the antrum. 2. Mild food in the stomach. 3. Nonerosive gastritis. RECOMMENDATION: 1. Await pathology results. 2. Okay to start clear liquid diet. Advance as tolerated. 3. Protonix 40 mg by mouth twice a day. 4. Consider gastric emptying study. Harish Montanez MD 07/20/17 4711 Assessment & Plan 42-year-old female with past medical history of chronic back pain & GERD presents to the emergency department secondary to 11 days of epigastric/ abdominal pain with radiation to the right upper chest, admitted for GI workup secondary to suspected peptic ulcer. # Acute epigastric pain, present on admission. Ongoing - Most likely secondary to long-term NSAID use. Minimal concern for WI. Pancreatic & liver enzymes negative - Post EGD on 07/20/17 showing mild gastritis - Appreciate GI consult. Will followup with recs - Await pathology results. - Okay to start clear liquid diet. Advance as tolerated. - Protonix 40 mg by mouth twice a day. - Consider gastric emptying study. - IV morphine 1-2 mg every 4 when necessary # Anxiety. Present on admission. Ongoing - Ativan prn # Chronic back pain. Ongoing - Pain medication as above # Depression. Ongoing - Continue home meds # GERD. Ongoing - PPI as noted above Dispo: 1-2 days GI Prophylaxis: Proton Pump Inhibitor VTE Prophylaxis: SCDs Resuscitation Status: CPR: Attempt Resuscitation Baljinder Wells Jul 20, 2017 17:24 VTE Prophylaxis: SCDs Resuscitation Status: CPR: Attempt Resuscitation Baljinder Wells Jul 20, 2017 17:24
--- NOTE | 2017-07-20 18:35 | NUR ---
Pain Pt c/o stabbing mid epigastric pain going up into teeth dilaudid, maalox, ativan with no relief. Notified MD, awaiting response. Addendum: 07/20/17 at 1849 by PAN LYNN RN New orders received extra dose IV dilaudid to be given now.
[2017-07-20] MEDS: DULoxetine 30 mg DR Capsule PO SCH (21:07)
[2017-07-21 01:12] VITALS: BP 111/66; PULSE 79; RESP 16; O2SAT 98
[2017-07-21] MEDS: 0.9% Sodium Chloride 1,000 ML IV SCH (05:12)
[2017-07-21 05:38] VITALS: BP 120/84; PULSE 89; RESP 16; O2SAT 98
--- NOTE | 2017-07-21 05:45 | NUR ---
Pain control Chest/Epigastric pain wasn't being managed with Dilaudid 0.5 mg Q4 so the On-Call doctor was called and she ordered M/S 2mg. Chest/Epigastric pain was managed with M/S 2mg Q3 during this shift. WASSERMAN pain managed with Imitrex. VSS with pain tolerated. Pt. alert an oriented to person place and time. Independent to bathroom with regular bowl and badder pattern. WCTM
[2017-07-21] MEDS: Sucralfate 1,000 mg Tablet PO SCH ×2 (07:30→11:52)
[2017-07-21 07:45] VITALS: BP_SYST 136; PULSE 101; RESP 20; O2SAT 100
[2017-07-21 07:49] LABS: BASOPHILS % (AUTO) 0.9 % (0-3); EOSINOPHILS % (AUTO) 2.6 % (0-5); MONOCYTES % (AUTO) 6.9 % (4-12); Mean Corpuscular Hemoglobin 25.5 pg (27.0-35.0); Mean Corpuscular Volume 80.2 fL (81-100); NEUTROPHILS % (AUTO) 62.8 % (40-74); Platelet Count 394 bil/L (150-400)
[2017-07-21 08:00] VITALS: PULSE 102
--- NOTE | 2017-07-21 10:01 | NUR ---
Stress test 0810 pt taken in w/ch to [facility]. 1000 pt ambulated up to room, stated "it is taking to long, i am still having severe pain, no one is finding out why I am having this pain. I want to see my doctor and go home." Nora WHYTE Addendum: 07/21/17 at 1013 by PAN LYNN RN notified, stated will need to finish tests or leave AMA Pt stated didn't want to leave AMA Mary Alice from [facility] came and brought her via w/ch to complete test.
[2017-07-21] MEDS: Pantoprazole 40 mg ER24 Tablet PO SCH (11:52)
[2017-07-21 11:55] VITALS: BP 130/75; PULSE 85; RESP 18; O2SAT 100
--- NOTE | 2017-07-21 12:04 | DRSVH ---
[facility] [address] [place] [address] Echocardiogram Report Name: ANNA WHITE Cali e: 07/21/2017 Height: 66 in Hospital Exam Location: [facility] Weight: 166 lb Gender: Female BSA: 1.8 m2 : 1975 Age: 42 yrs BP: 120/84 mmHg Reason For Study: CHEST PAIN Ordering Physician: [facility]PITAL[facility] Performed By: Leora Geiger [facility] Phys[facility] Interpretation Summary The left ventricle is normal in size, wall thickness, and systolic function without any focal wall motion abnormalities. The ejection fraction is estimated to be 60-65%. The right ventricle is normal size. The right ventricular systolic function is normal. No significant valvular pathology seen. Procedure: A two-dimensional transthoracic echocardiogram with color flow and Doppler was performed. The study quality was technically adequate. There is no prior echocardiogram noted for this patient. The patient was in normal sinus rhythm during the exam. Left Ventricle: The left ventricle is normal in size, wall thickness, and systolic function without any focal wall motion abnormalities. There is no thrombus. The left ventricular ejection fraction is normal. The ejection fraction is estimated to be 60-65%. There are no focal wall motion abnormalities. Assessment of diastolic parameters indicates normal left ventricular diastolic function and normal filling pressures. Right Ventricle: The right ventricle is normal size. The right ventricular systolic function is normal. Atria: The left atrial size is normal. The right atrium is normal in size. There is no Doppler evidence for an interatrial shunt. Mitral Valve: The mitral valve is normal. There is trace mitral regurgitation. Aortic Valve: The aortic valve is normal in structure and function. There is no aortic valve stenosis. No aortic regurgitation is present. Tricuspid Valve: The tricuspid valve is normal. There is a trace or physiologic amount of tricuspid regurgitation. Pulmonary artery pressures cannot be estimated because of the lack of a measurable TR jet velocity. Pulmonic Valve: The pulmonic valve leaflets are thin and pliable; valve motion is normal. There is a trace or physiologic amount of pulmonic regurgitation. Great Vessels: The aortic root is normal size. The ascending aorta is normal in size. The aortic arch is normal in size. The pulmonary is not well visualized. The IVC is dilated (diameter is greater than 2.1 cm) yet it collapses greater than 50% with a sniff. This suggests a right atrial pressure of 8 mm Hg. Pericardium/ Pleura There is no pericardial effusion. There is no pleural effusion. MMode/2D Measurements & Calculations LVIDd: 5.1 cm RA long axis LVOT diam: 2.3 cm LVIDs: 3.2 cm LA A2 area: 15.7 cm AoV Opening FS: 36.8 % LA A4 area: 12.6 cm RA area EPSS: 0.52 cm LA length (vol) Ao root diam IVSd: 0.95 cm : 11.5 cm LVPWd: 0.99 cm LA vol: 44.3 ml RA vol asc Aorta Diam LA vol index : 25.1 ml RA Ao Arch Diam (Prox : 13.6 mm2 Trans): 2.9 cm IVC diam: 2.2 cm LV johnson. diameter/BSA LV sys. diameter/BSA RVD1 (basal) RVD2 (mid): 2.0 cm (cm/m^2): 2.8 (cm/m^2): 1.8 Doppler Measurements & Calculations Ao V2 max MV E max hugo MV E/A: 1.3 PA V2 max : 108.6 cm/sec : 74.5 cm/sec Med Peak E' Hugo : 77.0 cm/sec Ao max PG MV A max hugo PA mean PG : 4.7 mmHg : 59.4 cm/sec E/E' med: 8.2 Ao mean PG MV P1/2t: 48.1 msec Lat Peak E' Hugo PA Accel Time : 0.08 sec LVOT Max Hugo E/E' lat: 6.4 : 86.7 cm/sec E/e' average: 7.3 JOSE(I,D): 3.2 cm sev ratio MV dec time MV P1/2t max hugo Ao V2 mean LV V1 max PG : 0.17 sec : 88.3 cm/sec MVA(P1/2t): 4.6 cm2 Ao V2 VTI: 23.2 cm LV V1 VTI JOSE(V,D): 3.5 cm2 : 17.2 cm PA V2 mean JOSE indexed to BSA : 56.8 cm/sec (cm^2/m^2): 1.7 Reading Physician:LEXIS
--- NOTE | 2017-07-21 14:44 | PCM.CHPMED ---
Subjective Date of Service: Jul 21, 2017 Provider requesting consult: Baljinder Wells Primary Physician: Admitting Physician: Charo Mendiola DO Primary Care Physician: Chanda Kulkarni DO Attending Physician: Baljinder Wells Admit Status: From the Emergency Department Chief Complaint: Chief Complaint: Epigastric pain History of Present Illness: GASTROENTEROLOGY CONSULT: Attending Physician: Harish Montanez MD Resident Physician: Jeniffer Milligan DO Hernandez Bruce is a 42-year-old female with a history of chronic back pain, migraines, and GERD who presented to the ED with abdominal pain, nausea and vomiting that started nearly two weeks ago. She states that the abdominal pain seems to radiate to her chest on the right and she notes jaw pain intermittently prior to admission. She has not appreciated any aggravating factors or a temporal relationship to her symptoms and has only found relief with pain medication and muscle relaxants; which she states were prescribed in the ED. She has presented to the ED several times as well as the clinic for similar symptoms. On 07/10/17 she was discharged from the ED with NSAIDs, prednisone, methocarbamol, and oxycodone. At that time, her chest pain was attributed to a muscle strain or costochondritis. However, she reports no change in her symptoms since. She does state that the nausea is improving but she attributes some of this to decreased intake. Of note, she was seen at [facility] with similar symptoms and a RUQ ultrasound on 07/12 showed no cholelithiasis or evidence of acute cholecystitis and a mildly enlarged common bile duct. She denies fever, chills, sick contacts, diarrhea, constipation, bloody or dark colored stool. She reports daily NSAID use, stating that she has been taking 800 mg of ibuprofen every 4 hours for the past 2-3 years for back pain. She also reports a history of migraines occasionally associated with nausea but states that her current symptoms are definitely different. She denies alcohol or illicit drug use but does smoke tobacco. In the ED, vitals were stable and labs unremarkable. An abdominal US without evidence of acute cholecystitis and abdominal xray showed a nonobstructive bowel gas pattern as well as moderate stool in the ascending colon. She was given pain medication, protonix as well as carafate and an EGD scheduled for the next day. Review of Systems: A comprehensive review of systems was conducted with the patient and found to be negative except as above in the History of Present Illness. PMH Past Medical History Chronic back pain Depression Anxiety GERD Migraines . Surgical History Tubal ligation . Home Medications Methocarbamol 1,500 MG PO QID PRN For Spasm Methocarbamol 750 MG PO QID PRN For Spasm Naproxen 500 MG PO BID PRN For Pain oxyCODONE 5 Mg Tablet Q6H PRN For Pain oxyCODONE-Acetaminophen 10-325 mg 1 TABLET PO Q6H PRN For Pain Amitriptyline 25-50 MG PO QAM Duloxetine 90 MG PO HS Ibuprofen 800 MG PO TID Omeprazole 40 MG PO BIDAC Sumatriptan Succinate 50 MG PO DIRECTED PRN For Headache . Allergies: Coded Allergies: No Known Allergies (Unverified , 07/10/17) Family History Family History Mother age 76 from myocardial infarction Father had "lung issues" stent placement 4. Alive today 80 years old Denies known history of GI issues. . Social History Hx Alcohol Use: NoHx Substance Use: NoHx Tobacco Use: Yes Smoking Status: Current Every Day Smoker Living Arrangement: with Family Exam Vital Signs Vital Sign - Last Date Time Temp Pulse Resp B/P Pulse Ox O2 Delivery O2 Flow Rate FiO2 07/21/17 05:38 36.8 89 16 120/84 98 Room Air Intake and Output 07/20/17 07/20/17 07/21/17 Cumulative From/Thru 15:00 23:00 07:00 07/19/17 16:49 - 07/20/17 22:00 Intake Total 500 ml 1914 ml 4414 ml Output Total 400 ml 400 ml Balance 500 ml 1514 ml 4014 ml Intake Oral 600 ml 600 ml IV Total 500 ml 1314 ml 3814 ml Output Urine Total 400 ml 400 ml # Voids 4 9 General: Well-appearing, age appropriate female, appears uncomfortable but in no acute distress. HEENT: Normocephalic, atraumatic. PERRLA, Anicteric sclera. Mucous membranes moist/pink Lungs: Clear to auscultation bilaterally with no crackles, wheezes, or rhonchi. Point tenderness of the chest wall between ribs 4-5, right sternal border Cardiovascular: Regular rate/rhythm. No murmurs Abdomen: Soft, nondistended, epigastric tenderness to palpation, no rebound or guarding. No masses, hypoactive bowel tones Extremities: No edema or cyanosis Skin: Warm and dry. No obvious rashes or ulcerations Neurological: AOx3, No focal neurologic deficit. Normal speech Lab and Diagnostics Labs Laboratory Tests Test 07/21/17 07:11 White Blood Count 5.4th/mm3 (3.8-10.1) Red Blood Count 4.15mil/mm3 (3.90-5.20) Hemoglobin 10.6g/dL (12.0-15.6) Hematocrit 33.3% (35.0-46.0) Mean Corpuscular Volume 80.2fL (81-100) Mean Corpuscular Hemoglobin 25.5pg (27.0-35.0) Mean Corpuscular Hemoglobin Concent 31.8% (32.0-37.0) Red Cell Distribution Width 15.4% (12.3-15.4) Platelet Count 394bil/L (150-400) Neutrophils (%) (Auto) 62.8% (40-74) Lymphocytes (%) (Auto) 26.8% (14-46) Monocytes (%) (Auto) 6.9% (4-12) Eosinophils (%) (Auto) 2.6% (0-5) Basophils (%) (Auto) 0.9% (0-3) Result Diagram: 07/20/17 0650 07/20/17 0650 X-Rays, CTs and MRIs 07/19/17 - US ABDOMEN, LIMITED IMPRESSION: No sonographic evidence of acute cholecystitis. Approved by: George Talbot M.D. on 07/19/2017 at 18:14 07/19/17 - X-RAY ACUTE ABDOMINAL SERIES IMPRESSION: Nonobstructive bowel gas pattern. Moderate stool in the ascending colon. Approved by: George Talbot M.D. on 07/19/2017 at 19:06 . Additional Diagnostics: 07/20/2017 - EGD w/ Biopsy PREOPERATIVE DIAGNOSIS: Epigastric pain. POSTOPERATIVE DIAGNOSIS: 1. Mild food seen in the stomach. 2. Mild nonerosive gastritis. 3. Pale antral mucosa status post biopsy. ANESTHESIA: 1. Fentanyl 200 mcg. 2. Versed 10 mg IV administered. FINDINGS: Upon inspection of the esophagus, the esophagus was normal without masses, ulcers or lesions. Z-line located 40 cm from incisors. Upon the entering the stomach, there was pale mucosa that was seen in the antrum. There were no masses or ulcers that were seen. There is also mild food seen in the stomach. Retroflexion was normal. Duodenal bulb, first and second portion normal. Biopsies were taken from the antrum and body and distal esophagus. IMPRESSION: 1. Pale mucosa in the antrum. 2. Mild food in the stomach. 3. Nonerosive gastritis. RECOMMENDATION: 1. Await pathology results. 2. Okay to start clear liquid diet. Advance as tolerated. 3. Protonix 40 mg by mouth twice a day. 4. Consider gastric emptying study. Harish Montanez MD 07/20/17 1150 Assessment & Plan Assessment 42-year-old female with a history of chronic back pain, migraines, and GERD who presented to the ED with a 10+ day history of abdominal pain with radiation to her chest that is associated with nausea and vomiting. Epigastric/chest pain in a patient with long-term NSAID use and concern for peptic ulcer disease in addition to cardiac etiology. - Cardiac workup has thus far been unremarkable. Based on the patient's history and presentation and concern for PUD an EGD was done on 07/20. Which revealed revealed pale mucosa within the antrum of the stomach and some food but no masses or ulcers. - At this time, symptoms most likely secondary to gastroparesis and/or GERD. Patient reports a history of migraines, which could be contributing to nausea as well. - Pathology results are pending. RECOMMENDATIONS: - Continue protonix 40mg PO BID - Low fat/carb and high protein diet gastroparesis diet - Gastric empyting study in outpatient setting - Must avoid narcotics for 48hrs prior to study Additional problems managed by primary Hospitalist: -Anxiety -Chronic back pain. -Depression . Problems: GI Prophylaxis: Proton Pump Inhibitor VTE Prophylaxis: SCDs Resuscitation Status: CPR: Attempt Resuscitation Jeniffer Milligan DO Jul 21, 2017 08:10 Harish Montanez MD Jul 21, 2017 16:31
--- NOTE | 2017-07-21 15:47 | PCM.DIMED ---
Discharge Instructions Date of Service Jul 21, 2017 Dates of Hospitalization Jul 19, 2017 at 18:53 Discharge Diagnosis Discharge Diagnosis # Acute epigastric pain, present on admission. Ongoing - Post esophagogastroduodenoscopy (EGD) on 07/20/17 showing mild gastritis and possible gastroparesis # Acute chest pain, present on admission. - Unclear etiology but acute myocardial infarction ruled out and negative cardiac workup including negative stress test # Acute on chronic anxiety. Present on admission. # Chronic back pain. # Chronic depression. # Chronic Gastroesophageal Reflux Disease (GERD) Diet Discharge Diet: No restrictions Activity Discharge Activity: No restrictions Call your provider Call your provider for: Fever or Chills, Shortness of breath, Bleeding, Chest pain, Vomitting, Excessive diarrhea Patient Instructions Patient Instructions Seek immediate medical attention if any new or worsening signs or symptoms occur. Follow-up plan 1. Followup with primary care provider within one week 2. Followup with gastroenterology (Dr. Montanez) on 08/04/17 at 9:[address] [address] Follow-up Provider: Harish Turk DO Follow-up with PCP in: 1 week Provider: Harish Montanez MD Follow-up in: Other (08/04/17 at 9:45 AM) Baljinder Wells Jul 21, 2017 15:47
[2017-07-21] MEDS ORDERED: SUCR1TAB30 PO (15:48)
--- NOTE | 2017-07-21 16:05 | NUR ---
Social Work: Discharge Data & Assessment: EMR reviewed. Patient is on day 2 of hospitalization for epigastric pain. Patient was discussed in morning rounds. Patient has been deemed medically stable for discharge today per MD. Transportation will be provided by patient's spouse. Patient has no additional needs at this time. Plan: Patient will discharge home today. Transportation will be provided by spouse. Patient has no additional needs at this time. [address]
--- NOTE | 2017-07-21 16:06 | PCM.DC.MED ---
Discharge Summary Date of Service Jul 21, 2017 Dates of Hospitalization Date of Hospital Admission Jul 19, 2017 at 18:53 Date of Discharge: Jul 21, 2017 Providers: Admitting Physician: Charo Mendiola DO Primary Care Physician: Chanda Kulkarni DO Attending Physician: Baljinder Mari Diagnosis at Time of Discharge Diagnosis at Time of Discharge # Acute epigastric pain, present on admission. Ongoing - Post esophagogastroduodenoscopy (EGD) on 07/20/17 showing mild gastritis and possible gastroparesis # Acute chest pain, present on admission. - Unclear etiology but acute myocardial infarction ruled out and negative cardiac workup including negative stress test # Acute on chronic anxiety. Present on admission. # Chronic back pain. # Chronic depression. # Chronic Gastroesophageal Reflux Disease (GERD) Consultations 1. GI (Dr. Montanez) Procedures XRay, CTs & MRIs US ABDOMEN, LIMITED IMPRESSION: No sonographic evidence of acute cholecystitis. Dictated by: George Talbot M.D. on 07/19/2017 X-RAY ACUTE ABDOMINAL SERIES IMPRESSION: Nonobstructive bowel gas pattern. Moderate stool in the ascending colon. Dictated by: George Talbot M.D. on 07/19/2017 Cardiac Echo Impression Date of Service: 07/21/17 1843 Echocardiogram Report Interpretation Summary The left ventricle is normal in size, wall thickness, and systolic function without any focal wall motion abnormalities. The ejection fraction is estimated to be 60-65%. The right ventricle is normal size. The right ventricular systolic function is normal. No significant valvular pathology seen. Reading Physician:LEXIS Other Diagnostics DATE: 07/20/2017 TYPE OF OPERATION: Esophagogastroduodenoscopy with biopsy. POSTOPERATIVE DIAGNOSIS(ES): 1. Mild food seen in the stomach. 2. Mild nonerosive gastritis. 3. Pale antral mucosa status post biopsy. IMPRESSION: 1. Pale mucosa in the antrum. 2. Mild food in the stomach. 3. Nonerosive gastritis. RECOMMENDATION: 1. Await pathology results. 2. Okay to start clear liquid diet. Advance as tolerated. 3. Protonix 40 mg by mouth twice a day. 4. Consider gastric emptying study. Harish Montanez MD 07/20/17 1150 Brief History As noted in H&P by Dr. Manrique: Ms. Bruce is a 42-year-old female with past medical history of chronic back pain & GERD presents to the emergency department secondary to 11days of epigastric/abdominal pain with radiation to the right upper chest. She does not remember a specific inciting event to these current symptoms, though was seen at [facility] ED on 07/10/2017 and her chest pain was determined to be a muscle strain or costochondritis. She was given NSAID, muscle relaxant and prednisone as well as pain medications. She was then seen at [facility] for similar symptoms and reports no diagnostic solution was found to her current pain, right upper quadrant ultrasound performed at [facility] on 07/12/2017 showed no cholelithiasis or evidence of acute cholecystitis. 2. Mildly enlarged common bile duct is of uncertain etiology. The need an MRCP to evaluate for possible choledocholithiasis may be determined clinically. She presents again today to the ED for ongoing epigastric pain with newly accompanying nausea and vomiting. The vomiting began yesterday 6 times and is reported as watery, no blood. She has not been able to eat food without pain and "does not remember the last time she ate anything secondary to this pain". She reports no fevers at home, no other sick contacts, no abdominal pain or diarrhea. Her epigastric pain is not worsened by anything specific, is relieved with pain medications. She does state that she has been taking 800 mg of ibuprofen every 4 hours to help relieve her pain in addition to her pain medications. She was seen by her PCP Dr. Turk today who recommended further evaluation in the ED for choledocholithiasis. She has significant past surgical history of and tubal ligation, The ED patient was given pain medication, GI was consult is requested patient be placed nothing by mouth, Protonix and sulfate given admission for monitoring of hemodynamic state with scheduled upper endoscopy for suspected bleeding peptic ulcer tomorrow. CBC showed a hemoglobin 10.8, CMP unremarkable. Lipase , total bili and LFTs within normal limits. UA negative. Hospital Course # Acute epigastric pain, present on admission. Ongoing - Most likely secondary to long-term NSAID use. - Post EGD on 07/20/17 showing mild gastritis and possible gastroparesis (given some retained food) - Appreciate GI consult. - Await pathology results. - Protonix 40 mg by mouth twice a day. - Continue Carafate until followup with GI in about 2 weeks - Consider gastric emptying study as outpatient # Acute chest pain, present on admission. - Ruled out OH with negative Trop - Echo unremarkable as noted above - Stress test done and reported as negative on day of discharge # Anxiety. Present on admission. Ongoing - Ativan prn given in hospital - Will discharge home with continued home meds # Chronic back pain. Ongoing - Stop home Ibuprofen - She can continue with home Percocet prn # Depression. Ongoing - Continue home meds # GERD. Ongoing - PPI as noted above Exam Vital Signs (Last) Date Time Temp Pulse Resp B/P Pulse Ox O2 Delivery O2 Flow Rate FiO2 07/21/17 11:55 37.3 85 18 130/75 100 Room Air Exam General: Alert, Cooperative, No Acute Distress Head: Normal Eyes: Scleral Anicteric Nose: Mucous Membr Moist/[place] Mouth: Mucous Membr Moist/[place] Neck: Supple Chest & Lungs: Chest Wall Normal, Clear to auscultation bilat Cardiovascular: Regular Rate/Rhythm Abdomen: Mildly tender, Non-distended, Normoactive bowel tones, Soft Extremities: No cyanosis/clubbing/edema bilat Neurological: Grossly Neurologically Intact, Normal Speech Test 07/19/17 17:11 07/19/17 17:13 07/20/17 06:50 07/21/17 07:11 Magnesium Level 1.9mg/dL (1.6-2.6) Human Chorionic Gonadotropin, Qual Negative (Negative) Hold Soliz Top Tube Received (Received) Urine Color Straw (YELLOW) Urine Appearance Clear (CLEAR,HAZY) Urine pH 5.5 (5.0-8.0) Urine Specific [place] 1.015 (1.003-1.035) Urine Protein Negativemg/dL (NEG,TRACE) Urine Glucose (UA) Negativemg/dL (NEGATIVE) Urine Ketones Negativemg/dL (NEGATIVE) Urine Occult Blood Negative (NEGATIVE) Urine Nitrite Negative (NEGATIVE) Urine Bilirubin Negative (NEGATIVE) Urine Urobilinogen Normalmg/dL (NORMAL) Urine Leukocyte Esterase Negative (NEGATIVE) Urine RBC 0-2/hpf (0-2) Urine WBC 0-5/hpf (0-5) Urine Epithelial Cells Moderate/hpf (NONE-MOD) Urine Crystals None seen (NONE SEEN) Urine Bacteria Few/hpf (NONE-FEW) Urine Hyaline Casts None/lpf (NONE) Urine Granular Casts None seen (NONE SEEN) Urine Waxy Casts None seen (NONE SEEN) Urine Red Blood Cell Casts None seen (NONE SEEN) Urine White Blood Cell Casts None seen (NONE SEEN) Urine Mucus None seen (None Seen) Urine Trichomonas None seen (NONE SEEN) Urine Yeast None (NONE SEEN) Urinalysis Comment None Urine Culture Reflexed Not indicated Troponin T 0.010ug/L (0.0-0.011) Triglycerides Level 161mg/dL (0-149) Cholesterol Level 159mg/dL (100-199) LDL Cholesterol, Calculated 85.800mg/dL (0-99) VLDL Cholesterol 32.200mg/dL HDL Cholesterol 41mg/dL (>39) Cholesterol/HDL Ratio 3.88 (0.0-4.4) Lipase 18U/L (13-60) White Blood Count 5.4th/mm3 (3.8-10.1) Red Blood Count 4.15mil/mm3 (3.90-5.20) Hemoglobin 10.6g/dL (12.0-15.6) Hematocrit 33.3% (35.0-46.0) Mean Corpuscular Volume 80.2fL (81-100) Mean Corpuscular Hemoglobin 25.5pg (27.0-35.0) Mean Corpuscular Hemoglobin Concent 31.8% (32.0-37.0) Red Cell Distribution Width 15.4% (12.3-15.4) Platelet Count 394bil/L (150-400) Neutrophils (%) (Auto) 62.8% (40-74) Lymphocytes (%) (Auto) 26.8% (14-46) Monocytes (%) (Auto) 6.9% (4-12) Eosinophils (%) (Auto) 2.6% (0-5) Basophils (%) (Auto) 0.9% (0-3) Sodium Level 142mEq/L (134-144) Potassium Level 4.0mEq/L (3.5-5.2) Chloride Level 107mEq/L (97-108) Carbon Dioxide Level 22mmol/L (18-29) Blood Urea Nitrogen 6mg/dL (6-24) Creatinine 0.55mg/dL (0.57-1.00) Estimat Glomerular Filtration Rate 175mL/min (>59) Glucose Level 90mg/dL (60-99) Calcium Level 8.9mg/dL (8.5-10.1) Total Bilirubin 0.2mg/dL (0.0-1.2) Aspartate Amino Transf (AST/SGOT) 11U/L (0-50) Alanine Aminotransferase (ALT/SGPT) 8U/L (0-32) Alkaline Phosphatase 46U/L (25-150) Total Protein 5.8g/dL (6.4-8.4) Albumin 3.8g/dL (3.4-5.0) Discharge Medications Discharge Medications Amitriptyline (Amitriptyline) 25 Mg Tab 25-50 MG PO QAM (Reported) Duloxetine (Duloxetine) 30 Mg Capsule.dr 90 MG PO HS (Reported) Fluticasone Propionate (Fluticasone Propionate) 50 Mcg/Actuation [place].susp 1 SPRAY NS QAM (Reported) Omeprazole (Omeprazole) 40 Mg Capsule.dr 40 MG PO BIDAC (Reported) Sucralfate (Carafate) 1 Gm Tablet 1,000 MG PO TIDAC Prescribed by: BALJINDER MARI MD Zinc Oxide (Vitamelts Fast Dissolve) 15 Mg Tab.rapdis 15 MG PO QAM (Reported) As needed Hydrocodone-Acetaminophen 5-325 mg (Hydrocodone-Acetaminophen 5-325 mg) 1 Each Tablet 2 TABLET PO Q6H PRN PRN For Pain (Reported) Methocarbamol (Methocarbamol) 750 Mg Tablet 750 MG PO QID PRN PRN For Spasm Prescribed by: CHRISTIAN KAMARA MD Pseudoephedrine HCl (Sinus 12 Hour) 120 Mg Tablet.er 120 MG PO BID PRN PRN For Congestion (Reported) Sumatriptan Succinate (Sumatriptan Succinate) 50 Mg Tablet 50 MG PO DIRECTED PRN PRN For Headache (Reported) MAY REPEAT IN 2 HRS IF NEEDED Followup Plan Disposition: Home Follow-up plan 1. Followup with primary care provider within one week 2. Followup with gastroenterology (Dr. Montanez) on 08/04/17 at 9:45 AM [facility] [address] [place] [address] Discharge Diet: No restrictions Discharge Activity: No restrictions Patient Instructions Seek immediate medical attention if any new or worsening signs or symptoms occur. Follow-up Provider: Harish Turk DO Follow-up with PCP in: 1 week Provider: Harish Montanez MD Follow-up in: Other (08/04/17 at 9:45 AM) Time spent 35 min copies to: Harish Turk DO; Harish Montanez MD, Masoud Jul 21, 2017 16:06
[2017-07-21 16:23] VITALS: BP 122/79; PULSE 102; RESP 18; O2SAT 100
--- NOTE | 2017-07-21 16:31 | NUR ---
Discharge Reviewed DC instructions with patient. Stated understanding. Pt reported MD stated he would write for pain medications for home. Paged him for script. Addendum: 07/21/17 at 1728 by PAN LYNN RN [id number] script for pain medication added to folder pt took home. pt tolerated jello, crackers, soup, soda prior to discharge Pt ready to go and did not want to wait for dinner. Pt taken out in w/ to home in private auto with SO. All belongings taken.
[2017-07-21] MEDS ORDERED: HYDR-4003 PO (16:37)
--- NOTE | 2017-07-21 19:28 | DRSVH ---
PROCEDURE: 1 DAY PHARMACOLOGICAL STRESS TEST INDICATIONS: CHEST PAIN COMPARISON: None. Radiopharmaceutical: Stress dose 9.1 mCi of technetium 99 tetrofosmin Stress dose 23.2 mCi of technetium 99 tetrofosmin Patient presentation: Patient is a 42-year-old woman with with chronic back pain, reflux and right up per chest pain. FINDINGS: Pharmacologic stress test: Following informed consent Lexisca was infused per protocol. Patient hand no ST segment changes. No PVCs. Raw data: Normal myocardial tracer uptake. Lung heart ratio is normal. Quantitative gated SPECT: At peak stress ejection fraction is 53%. Rest ejection fraction 72%. Normal wall motion with the exception of basal septal segments. Myocardial perfusion imaging: There is no evidence of ischemia prior infarct. IMPRESSION: Low risk pharmacologic stress test with myocardial perfusion imaging. No ischemia. Normal LV systolic function with the exception of septal hypokinesis at peak stress. This finding duffy sn't have clear clinical significance given the lack of associated perfusion abnormalities. There is no prior study available for comparison. Dictated by: Kennedi Cook M.D. on 07/21/2017 at 19:14 Approved by: Kennedi Cook M.D. on 07/21/2017 at 19:26
--- NOTE | 2017-07-22 11:56 | PATH ---
SURGICAL PATHOLOGY Attending Physician:Harish Montanez MD CASE STATUS: Signed Out PATIENT NAME: ANNA WHITE PID: [id number] : 1975 DATE COLLECTED:07/20/2017 19:06 SPECIMEN: 1: Stomach, Antrum, Biopsy 2: Gastric, Biopsy 3: Esophagus, Biopsy CLINICAL HISTORY: 1). ANTRUM BIOPSY, RULE OUT H PYLORI 2). GASTRIC BODY BIOPSY, RULE OUT H PYLORI 3). DISTAL ESOPHAGUS BIOPSY FINAL DIAGNOSIS: 1. Stomach, Antrum, Biopsy: Antral mucosa with mild chronic gastritis. Negative for Helicobacter by immunohistochemistry. Negative for intestinal metaplasia. Negative for dysplasia and malignancy. 2. Stomach, Body, Biopsy: Body-type mucosa with no diagnostic abnormality. Negative for Helicobacter by immunohistochemistry. Negative for intestinal metaplasia. Negative for dysplasia and malignancy. 3. Distal Esophagus, Biopsy: Squamocolumnar junctional mucosa with no diagnostic abnormality. Negative for intestinal metaplasia. Negative for dysplasia and malignancy. ICD10: R10.9 GROSS DESCRIPTION: The specimen is received in three formalin filled containers labeled with the patient's name. 1). The specimen is labeled "antrum" and consists of 2 portions of tissue which aggregate to 0.3 x 0.3 x 0.2 CM. The specimen is entirely submitted in cassette 1A. 2). The specimen is labeled "body gastric" and consists of a 0.3 x 0.3 x 0.2 CM portion of tissue which is entirely submitted in cassette 2A. 3). The specimen is labeled "distal esophagus" and consists of 2 tiny portions of tissue which aggregate to 0.2 x 0.2 x 0.1 CM. The specimen is entirely submitted in cassette 3A. 07/20/2017DC MICRO DESCRIPTION: Immunohistochemical stains were performed on blocks 1 and 2 to evaluate for Helicobacter organisms and are both negative. A control showed appropriate reactivity. * This test was developed and its performance characteristics determined by [employer]. It has not been cleared or approved by the U.S. Food and Drug Administration. The FDA has determined that such clearance or approval is not necessary. This test is used for clinical purposes. It should not be regarded as investigational or for research. ICD-9 CODES: CPT CODES: 1: 25745, 49631 2: 44538, 22556 3: 90210 Electronically Signed Out Vira Pelayo MD [facility] [address], [place] [address] Technical component performed at [facility], [facility] [address], [place], [address]
== END 2017-07-21 16:46 | disposition home or self-care (01) ==
LOC: SED 16:41 → MOC 18:53
PROVIDERS: ADMIT Internal Medicine; ATTEND Internal Medicine
DX: K29.50 Unspecified chronic gastritis without bleeding (principal); R07.9 Chest pain, unspecified; K21.9 Gastro-esophageal reflux disease without esophagitis; M54.89 Other dorsalgia; F32.9 Major depressive disorder, single episode, unspecified; F41.9 Anxiety disorder, unspecified; F17.210 Nicotine dependence, cigarettes, uncomplicated
CPT/HCPCS: 36415; 43239; 74022; 76705; 78452; 80053; 80061; 81000; 83690; 83735; 84484; 84703; 85014; 85018; 85025; 88305; 88342; 93005; 93017; 96361; 96374; 96375; 96376; 99285; A9502; C8929; G0378; G0463; J0280; J1170; J2060; J2250; J2270; J2405; J2785; J3010; J7030; S0164